=== PATIENT | male | born 1970 | race Caucasian/White ===

== ENCOUNTER 2019-09-16 17:26 | Emergency (ER) | payer BC ==
--- OUTSIDE RECORDS SUMMARY | 2019-09-16 17:47 | XMS REPORT | Continuity of Care Document ---
:1970 External Reference #:[id number] Author Name Tonya Dennison, MARIANA, RN, AGRICULTURAL SYSTEMS SPECIALIST-BC (transmitted by agent of provider Shanique Acosta) Address [address] [facility], [address] [address] Care Team Providers Name Role Phone Elida Carrillo FNP - Nurse Care Team Information Hospital Medical Assistant [phone] Practitioner Problems Active Problems Provider Date Obstructive sleep apnea syndrome Khadar Bell M.D. Onset: 12/08/2014 Social History Type Date Description Comments Sex Unknown Tobacco Use Start: Unknown Never Smoked Cigarettes Smoking Status Reviewed: 08/12/19 Never Smoked Cigarettes ETOH Use Drinks 1 Alcoholic Beverage Per Day Tobacco Use Start: Unknown Patient has never smoked Recreational Drug Use Denies Drug Use Exercise Type/Frequency Does not exercise Allergies, Adverse Reactions, Alerts Active Allergies Reaction Severity Comments Date Demerol 09/15/2014 Medications Active Medications SIG Qnty Indications Ordering Provider Date Celecoxib 100mg by mouth 60caps M25.561 Stanley Adlre 11/04/2016 100mg twice a day as MD Bethanie Capsules needed Clonazepam 1 daily as needed 15tabs Unknown 1mg Tablets for anxiety Dispers Paxil 1 by mouth every 30tabs Unknown 40mg Tablets day Metformin HCL 1 by mouth twice Unknown 500mg a day Tablets Medications Administered in Office Medication SIG Qnty Indications Ordering Provider Date Depomedrol 40MG Stanley Kovacs MD 11/04/2016 Injection Immunizations Description No Information Available Vital Signs Date Vital Result Comment 08/12/2019 12:51pm Height 70 inches 5'10" Weight 262.00 lb Heart Rate 72 /min BP Systolic Sitting 140 mmHg BP Diastolic Sitting 78 mmHg O2 % BldC Oximetry 98 % BMI (Body Mass Index) 37.6 kg/m2 08/06/2018 1:01pm Height 70 inches 5'10" Weight 262.38 lb Heart Rate 64 /min BP Systolic Sitting 124 mmHg Lue large cuff BP Diastolic Sitting 84 mmHg Lue large cuff Respiratory Rate 16 /min O2 % BldC Oximetry 94 % BMI (Body Mass Index) 37.6 kg/m2 Results Description No Information Available Procedures Description No Information Available Medical Devices Description No Information Available Encounters Description No Information Available Assessments Date Code Description Provider 08/12/2019 G47.33 Obstructive sleep apnea (adult) Tonya Dennison DNP, RN, AGRICULTURAL SYSTEMS SPECIALIST-BC (pediatric) Plan of Treatment Future Appointment(s):08/11/2020 8:15 am - Tonya Dennison DNP, RN, AGRICULTURAL SYSTEMS SPECIALIST-BC at [facility]08/12/2019 - Tonya Dennison DNP, RN, IVON- BCG47.33 Obstructive sleep apnea (adult) (pediatric)New Orders:[facility], Ordered: 08/12/19Comments:NPSG SNS 09/16/14 AHI 49.7/hour robbie 78%, wt 225on CPAP 10-15 cm AHI 1.2/hour, normalFollow up:1 yearRecommendations: Continue PAP device, Benefitting and compliant with treatment. Trial Philippe FFM large (sample provided) or Resmed Airfit F30 medium Cleaning Wipe off mask daily (baby wipe-no scent, or warm water) Clean mask, tubing, filter, and water chamber weekly in mild no scent dish soap and water. Hang to dry. Use the CPAP for the full night prior to driving responsibilities. If you have any sleepiness while driving you MUST avoid operating a vehicle or machinery. If you have difficulty with your equipment, or need to replace your mask or hoses, please contact your homecare agency. A weight change of 20 pounds or more may have an effect on your equipment; if you are experiencing problems please call for an appointment. Avoid weight gain If you have any further questions, please call the [facility] at [phone]. Functional Status Description No Information Available Mental Status Description No Information Available Referrals Description No Information Available
--- NOTE | 2019-09-16 22:50 | ED ---
Abdominal Pain/Male - HPI Summary HPI Summary: 49-year-old male with significant past medical history of fatty liver disease, prediabetes presents to emergency department today complaining of right flank pain which began last evening. He states pain is an 8 out of 10 "stabbing" pain made worse when he moves his right leg or ambulates. He states his pain radiates to his groin on the right side. He says his pain is made better with rest. Patient denies family history of kidney stones or personal history of kidney stones. Family history and social history are noncontributory. Patient denies fever, chest pain, abdominal pain, pain with urination, back pain, decreased range of motion, rash. - History of Current Complaint Chief Complaint: EDFlankPain Stated Complaint: RT FLANK PAIN PER PT Time Seen by Provider: 09/16/19 22:35 Hx Obtained From: Patient Onset/Duration: Sudden Onset Timing: Constant Severity Initially: Mild Severity Currently: Mild Pain Intensity: 2 Pain Scale Used: 0-10 Numeric Location: Flank Radiates: Yes Radiates to: Inguinal Character: Sharp Associated Signs And Symptoms: Negative: Fever, Chest Pain, Constipation, Blood in Stool, Urinary Symptoms, Decreased Appetite, Nausea, Vomiting, Diarrhea, Penile Discharge - Allergies/Home Medications Allergies/Adverse Reactions: Allergies Allergy/AdvReac Type Severity Reaction Status Date / Time meperidine [From Demerol] Allergy Vomiting Verified 09/16/19 17:41 PMH/Surg Hx/FS Hx/Imm Hx Endocrine/Hematology History: Denies: Hx Anticoagulant Therapy, Hx Diabetes, Hx Thyroid Disease Cardiovascular History: Denies: Hx Hypertension Respiratory History: Denies: Hx Asthma, Hx Chronic Obstructive Pulmonary Disease (COPD) GI History: Denies: Hx Ulcer Infectious Disease History: No Infectious Disease History: Denies: Hx Clostridium Difficile, Hx Hepatitis, Hx Human Immunodeficiency Virus (HIV), Hx of Known/Suspected MRSA, Hx Shingles, Hx Tuberculosis, Hx Known/ Suspected VRE, Hx Known/Suspected VRSA, History Other Infectious Disease, Traveled Outside the [place] in Last 30 Days - Social History Alcohol Use: Occasionally Substance Use Type: Reports: None Smoking Status (MU): Current Every Day Smoker Type: Smokeless Tobacco Amount Used/How Often: 1 can/2days Length of Time of Smoking/Using Tobacco: 18 years Have You Smoked in the Last Year: No Review of Systems Constitutional: Negative Eyes: Negative ENT: Negative Cardiovascular: Negative Respiratory: Negative Gastrointestinal: Negative Genitourinary: Negative Musculoskeletal: Negative Skin: Negative Neurological: Negative Psychological: Normal All Other Systems Reviewed And Are Negative: Yes Physical Exam Triage Information Reviewed: Yes Vital Signs On Initial Exam: Initial Vitals Temp Pulse Resp BP Pulse Ox 97.9 F 59 18 154/98 97 09/16/19 17:30 09/16/19 17:30 09/16/19 17:30 09/16/19 17:30 09/16/19 17:30 Vital Signs Reviewed: Yes Appearance: Positive: Well-Appearing, No Pain Distress, Well-Nourished Skin: Positive: Warm, Skin Color Reflects Adequate Perfusion Eyes: Positive: EOMI, SAM ENT: Positive: Hearing grossly normal Respiratory/Lung Sounds: Positive: Clear to Auscultation, Breath Sounds Present Cardiovascular: Positive: RRR, S1, S2 Abdomen Description: Positive: Nontender, No Organomegaly, Soft. Negative: CVA Tenderness (R), CVA Tenderness (L), Distended, Guarding Bowel Sounds: Positive: Present Musculoskeletal: Positive: Strength/ROM Intact. Negative: Edema Left, Edema Right Neurological: Positive: Sensory/Motor Intact, Alert, Oriented to Person Place, Time, Normal Gait, Speech Normal Psychiatric: Positive: Normal AVPU Assessment: Alert Procedures - Sedation Patient Received Moderate/Deep Sedation with Procedure: No Diagnostics - Vital Signs Vital Signs Temp Pulse Resp BP Pulse Ox 09/16/19 22:30 97.6 F 48 16 159/101 98 09/16/19 20:00 97.8 F 50 16 140/80 100 09/16/19 17:30 97.9 F 59 18 154/98 97 - Laboratory Result Diagrams: 09/16/19 23:04 09/16/19 23:04 Lab Statement: Any lab studies that have been ordered have been reviewed, and results considered in the medical decision making process. Abdominal Pain Male Course/Dx - Course Course Of Treatment: Patient was seen and examined. His vitals are stable and he is afebrile. Laboratory results came back within normal limits and CT scan of the abdomen and pelvis without contrast showed no evidence of kidney stone or other pathology. Patient's pain is likely due to mechanical back pain. He is told to take [id number] pain medication for pain and follow-up with his primary care physician for further evaluation and management. - Diagnoses Differential Diagnosis/HQI/PQRI: Renal Colic, Urinary Tract Infection Provider Diagnoses: Flank pain Discharge ED - Sign-Out/Discharge Documenting (check all that apply): Patient Departure - Discharge Plan Condition: Stable Disposition: HOME Patient Education Materials: Flank Pain (ED) Referrals: Rianna Mitchell [Primary Care Provider] - 3 Days Additional Instructions: You were seen in the emergency department today for flank pain. Laboratory studies were done as well as imaging which revealed no evidence of acute pathology requiring intervention at this time. Please follow up with your primary care provider within 3 days for further evaluation and management of your symptoms. you may take ibuprofen 600 mg every 6 hours as needed for pain. Please return to activity as tolerated. Please return to the emergency department immediately if you develop any new or worsening symptoms. - Billing Disposition and Condition Condition: STABLE Disposition: Home
[2019-09-16 23:13] LABS: ABS Basophils 0.1 10^3/ul (0-0.2); ABS Eosinophils 0.3 10^3/ul (0-0.6); ABS Lymphocytes 3.2 10^3/ul (1.0-4.8); ABS Monocytes 0.6 10^3/ul (0-0.8); ABS Neutrophils 2.6 10^3/ul (1.5-7.7); Hematocrit 41 % (42-52); Hemoglobin 14.5 g/dL (14.0-18.0); Lymphocyte % 46.4 %; Mean Corpuscular HGB Conc 36 g/dL (31-36); Mean Corpuscular Hemoglobin 30 pg (27-31); Mean Corpuscular Volume 83 fL (80-94); Mean Platelet Volume 7.7 fL (7.4-10.4); Platelet Count 229 10^3/uL (150-450); Red Blood Count 4.91 10^6 /uL (4.18-5.48); Red Cell Distribution Width 13 % (10-15); White Blood Count 6.8 10^3/uL (3.5-10.8)
[2019-09-16 23:40] LABS: Albumin/Globulin Ratio 1.4 (1-3); BUN/Creatinine Ratio 18.2 (8-20); C Reactive Protein 3.7 mg/L (<8.01); Calcium 8.8 mg/dL (8.6-10.3); EGFR African American 85.4 (>60); EGFR Non-African American 70.6 (>60); Globulin 2.9 g/dL (2-4); Potassium 3.9 mmol/L (3.5-5.0); Total Bilirubin 0.5 mg/dL (0.2-1.0); Total Protein 6.9 g/dL (6.4-8.9)
[2019-09-17 00:05] LABS: Urine Appearance Clear; Urine Bilirubin Negative (Negative); Urine Blood Negative (Negative); Urine Color Yellow; Urine Glucose Negative (Negative); Urine Ketones Negative (Negative); Urine Nitrite Negative (Negative); Urine Protein Negative (Negative); Urine Urobilinogen Negative (Negative)
[2019-09-17 00:09] LABS: Urine Bacteria Absent (Absent); Urine Red Blood Cell Absent (Absent); Urine Squamous Epithelial Cell Present (Absent); Urine White Blood Cell Trace(0-5/hpf) (Absent)
[2019-09-17 00:47] VITALS: BP 158/97
== END 2019-09-17 00:46 | disposition home or self-care (01) ==
LOC: ED 17:26
DX: R10.31 Right lower quadrant pain (principal); F17.290 Nicotine dependence, other tobacco product, uncomplicated; K57.30 Diverticulosis of large intestine without perforation or abscess without bleeding; Z88.5 Allergy status to narcotic agent
CPT/HCPCS: 36415; 74176; 80053; 81003; 81015; 85025; 86140; 87086; 99282

== ENCOUNTER 2019-11-21 15:12 | Emergency (ER) | payer BC ==
[2019-11-21 16:34] VITALS: BP 104/59
--- NOTE | 2019-11-21 16:39 | UC ---
FLU HPI - HPI Summary HPI Summary: 49 yo with onset of cough yesterday, with fever and myalgias starting this morning. Decreased appetite, taking fluids well. He feels lightheaded, but does not have vertigo. Grandchildren have had flu B, son was dx'd with flu yesterday. - History of Current Complaint Stated Complaint: FEVER,FLU LIKE SYMPTOMS Time Seen by Provider: 11/21/19 16:22 Hx Obtained From: Patient Onset/Duration: Gradual Onset, Lasting Days - 2 Severity Currently: Moderate Severity Initially: Mild Associated Signs & Symptoms: Positive: Fever, Myalgia, Cough, Sore Throat, Headache Related Hx: Possible Flu/Infectious Exposure - Risk Factors Influenza Risk Factors: Chronic Medical or Immunosuppresive Condition - Allergy/Home Medications Allergies/Adverse Reactions: Allergies Allergy/AdvReac Type Severity Reaction Status Date / Time meperidine [From Demerol] Allergy Vomiting Verified 11/21/19 16:32 Home Medications: Home Medications PARoxetine HCL TAB* [Paxil TAB*] 40 mg PO DAILY 10/25/12 [History Confirmed ] clonazePAM TAB(*) [Klonopin TAB(*)] 0.5 mg PO DAILY PRN 10/25/12 [History Confirmed 11/21/19] Krill/Om3/Dha/Epa/Om6/Lip/Astx [Krill Oil 1,000 mg Softgel] 1 cap PO DAILY 10/15 [History Confirmed 11/21/19] Buspirone HCl 10 mg PO DAILY 07/21/18 [History Confirmed 11/21/19] Metformin HCl 500 mg PO BID 07/21/18 [History Confirmed 11/21/19] Glucosamine Sulfate Dipot Chlr [Gnp Glucosamine Maximum S] 1,500 mg PO DAILY [History Confirmed 11/21/19] Ibuprofen TAB* [Motrin TAB* 600 MG] 600 mg PO DAILY PRN 07/29/18 [History Confirmed 11/21/19] Oseltamivir CAP* [Tamiflu CAP*] 75 mg PO BID #9 cap 11/21/19 [Rx] PMH/Surg Hx/FS Hx/Imm Hx Previously Healthy: Yes Endocrine History: Dyslipidemia - Fatty liver disease--on metformin Other History Of: Negative For: Anticoagulant Therapy - Surgical History Surgical History: None - Family History Known Family History: Positive: Non-Contributory - Social History Occupation: Employed Full-time Lives: With Family Alcohol Use: Occasionally Substance Use Type: None Smoking Status (MU): Current Every Day Smoker Type: Smokeless Tobacco Amount Used/How Often: 1 can/2days Length of Time of Smoking/Using Tobacco: 18 years Have You Smoked in the Last Year: No Household Exposure Type: Cigarettes Review of Systems All Other Systems Reviewed And Are Negative: Yes Constitutional: Positive: Fever, Fatigue Skin: Positive: Negative Eyes: Positive: Eye Redness. Negative: Diplopia, Drainage ENT: Positive: Sore Throat Respiratory: Positive: Cough. Negative: Shortness Of Breath Cardiovascular: Negative: Palpitations, Chest Pain Gastrointestinal: Positive: Other - decreased appetite Genitourinary: Positive: Negative Motor: Positive: Weakness Neurovascular: Positive: Negative Musculoskeletal: Positive: Negative Neurological/Mental Status: Positive: Headache Psychological: Positive: Negative Is Patient Immunocompromised?: No Physical Exam Appearance: Ill-Appearing - looks flushed and unwell, Pain Distress - mild, Obese Eyes: Positive: Conjunctiva Inflamed - bilateral injection without drainage. ENT: Positive: Pharyngeal erythema, TMs normal, Other - EOM normal, no nystagmis , pupils equal and reactive Neck: Positive: Supple, Nontender, No Lymphadenopathy Respiratory: Positive: Lungs clear, Normal breath sounds, No respiratory distress Cardiovascular: Positive: RRR, No Murmur Abdomen Description: Positive: Nontender, No Organomegaly, Soft Musculoskeletal Exam: Normal Neurological Exam: Normal Psychological Exam: Normal Skin Exam: Normal Diagnostics - Laboratory Lab Results: influenza A positive Flu Course/Dx - Course Course Of Treatment: Tamiflu initiated, rest and fluids at home. - Differential Dx/Diagnosis Differential Diagnosis/HQI/PQRI: Influenza, Upper Respiratory Infection Provider Diagnosis: Influenza A Discharge ED - Sign-Out/Discharge Documenting (check all that apply): Patient Departure All imaging exams completed and their final reports reviewed: No Studies - Discharge Plan Condition: Stable Disposition: HOME Prescriptions: Oseltamivir CAP* [Tamiflu CAP*] 75 mg PO BID #9 cap Patient Education Materials: Influenza (ED) Forms: *Work Release Referrals: Rianna Mitchell [Primary Care Provider] - Additional Instructions: Take tamiflu twice daily for 5 days. Side effects include nausea and diarrhea. Ensure a high intake of fluids. Use acetaminophen 650mg every 6 hours or ibuprofen 600mg up to 4 times per day to decrease fever and relieve aches. follow up if you have increasing shortness of breath or chest pain. Off work until you are free of fever for 24 hours. - Billing Disposition and Condition Condition: STABLE Disposition: Home
[2019-11-21 16:41] LABS: Influenza A Molecular POSITIVE (Negative)
[2019-11-21] MEDS ORDERED: Oseltamivir CAP* 75 MG CAP PO ONE (16:47)
== END 2019-11-21 17:00 | disposition home or self-care (01) ==
LOC: UCEAST 15:12
DX: J10.1 Influenza due to other identified influenza virus with other respiratory manifestations (principal); F17.210 Nicotine dependence, cigarettes, uncomplicated; Z88.3 Allergy status to other anti-infective agents
CPT/HCPCS: 99212; A9270-GY; G0463